=== PATIENT | male | born 1970 ===

== ENCOUNTER 2017-10-17 06:54 | Emergency (ER) | payer OTHER ==
[~2017-10-17] VITALS: Ht 175.3 cm; Wt 88.5 kg
[2017-10-17] MEDS ORDERED: IBUP600 PO (07:53)
[2017-10-17] MEDS ORDERED: Ultram50 MG PO (07:53)
== END 2017-10-17 08:07 | disposition home or self-care (01) ==
LOC: ER 06:54
DX: S67.21XA Crushing injury of right hand, initial encounter (principal); W23.0XXA Caught, crushed, jammed, or pinched between moving objects, initial encounter
CPT/HCPCS: 29125; 73130; 99283; L3917